=== PATIENT | female | born 1975 | race Caucasian/White ===

== ENCOUNTER → 2016-08-15 | Outpatient (CLI) | payer BC ==
[~2016-08-15] MED LIST: MOTRIN 800800 MG/TAB PO; PERCOCET 325 MG1 TA2 PO
== END ==
LOC: MC.RAD 07:20
DX: Z12.31 Encounter for screening mammogram for malignant neoplasm of breast (principal)

== ENCOUNTER → 2017-12-07 | Outpatient (CLI) | payer OTHER | LOC: MC.RAD 07:56 | DX: Z12.31 Encounter for screening mammogram for malignant neoplasm of breast (principal) ==

== ENCOUNTER → 2019-08-26 | Outpatient (CLI) | payer OTHER | LOC: MC.RAD 15:24 | DX: Z12.31 Encounter for screening mammogram for malignant neoplasm of breast (principal) ==

== ENCOUNTER → 2020-11-17 | Outpatient (CLI) | payer OTHER | LOC: MC.RAD 14:13 | DX: Z12.31 Encounter for screening mammogram for malignant neoplasm of breast (principal) ==

== ENCOUNTER 2021-01-19 08:37 | Emergency (ER) | payer OTHER ==
[~2021-01-19] VITALS: Ht 180.3 cm; Wt 120.9 kg
[2021-01-19 08:43] VITALS: BP 175/102; PULSE 98; TEMP 97.7
== END 2021-01-19 10:15 | disposition home or self-care (01) ==
LOC: COL.ER 08:37
DX: S05.31XA Ocular laceration without prolapse or loss of intraocular tissue, right eye, initial encounter (principal); V43.52XA Car driver injured in collision with other type car in traffic accident, initial encounter

== ENCOUNTER 2021-09-22 15:32 | Outpatient (RCR) | payer OTHER | END 2021-09-26 | disposition home or self-care (01) | LOC: WSPT | DX: M25.571 Pain in right ankle and joints of right foot (principal) ==

== ENCOUNTER → 2021-10-12 13:53 | Outpatient (RCR) | payer OTHER | END | disposition home or self-care (01) | LOC: WSPT 09-27 15:45 | DX: M25.571 Pain in right ankle and joints of right foot (principal) ==

== ENCOUNTER → 2021-11-24 | Outpatient (CLI) | payer OTHER | LOC: MC.RAD 15:53 | DX: Z12.31 Encounter for screening mammogram for malignant neoplasm of breast (principal) ==

== ENCOUNTER 2021-12-20 09:01 | Outpatient (RCR) | payer OTHER | END 2021-12-27 | LOC: WSPT | DX: M25.571 Pain in right ankle and joints of right foot (principal) ==

== ENCOUNTER 2022-10-25 07:06 | Day surgery (SDC) | payer OTHER ==
[~2022-10-25] VITALS: Ht 180.3 cm; Wt 125.9 kg
[2022-10-25] MEDS ORDERED: COZAAR 50MG50 MG/TAB PO (07:14)
[2022-10-25] MEDS ORDERED: WELLBUTRIN XL150 MG PO (07:15)
[2022-10-25] MEDS ORDERED: WEGOVY0.5 MG/0.5 SQ (07:16)
[2022-10-25] MEDS ORDERED: ALLEGRA-D 24HR1 T24 PO (07:17)
[2022-10-25 07:23] VITALS: BP 137/90; PULSE 80; TEMP 96.5
[2022-10-25 09:30] VITALS: BP 113/81; PULSE 83; TEMP 97
[2022-10-25 09:45] VITALS: BP 122/84; PULSE 66
[2022-10-25 10:00] VITALS: BP 122/84; PULSE 69
--- NOTE | 2022-10-25 11:12 | NUR ---
0930: PATIENT TO BAY 1 PER CART FROM ENDO SUITE. REPORT RECEIVED. VS STABLE. BREATHING EVEN AND UNLABORED. PATIENT SIPPING WATER AT THIS TIME. PATIENT RESTING IN RECLINER AT THIS TIME. CALL LIGHT IN REACH. 0940: DR. RAUSCH IN TO SPEAK WITH PATIENT AT THIS TIME. 1000: PATIENT CONTINUES TO TOLERATE FLUIDS. DISCHARGE EDUCATION COMPLETED. PATIENT STATED UNDERSTANDING OF HOME INSTRUCTIONS. DISCHARGE PAPERWORK GIVEN TO PATIENT. IV DC'D AT THIS TIME. PATIENT DENIES ANY ASSISTANCE WITH DRESSING. 1005: PATIENT AMBULATED SELF TO BATHROOM WITH STEADY GAIT. 1010: PATIENT OFF UNIT VIA WHEELCHAIR. PATIENT DISCHARGED TO HOME WITH FRIEND PER PERSONAL VEHICLE.
== END 2022-10-25 10:10 | disposition home or self-care (01) ==
LOC: SDCO 07:06
DX: Z12.11 Encounter for screening for malignant neoplasm of colon (principal); K57.30 Diverticulosis of large intestine without perforation or abscess without bleeding
CPT/HCPCS: J2704; J7120